=== PATIENT | female | born 1975 | race Caucasian/White ===

== ENCOUNTER 2020-12-17 16:43 | Emergency (ER) | payer OTHER ==
[~2020-12-17 16:43] MED LIST: BROMPHENIR-PSE118 ML PO; COLACE 100MG C100 MG PO; IBUPROFEN600 MG PO; LORTAB 5-325 M1 EACH PO; ZYRTEC10 MG PO
== END 2020-12-17 20:55 | disposition home or self-care (01) ==
LOC: ER1 16:43
DX: S30.0XXA Contusion of lower back and pelvis, initial encounter (principal); Z90.710 Acquired absence of both cervix and uterus; Z79.899 Other long term (current) drug therapy; Z88.8 Allergy status to other drugs, medicaments and biological substances; W01.0XXA Fall on same level from slipping, tripping and stumbling without subsequent striking against object, initial encounter
CPT/HCPCS: 72100; 99283

== ENCOUNTER → 2021-01-21 | Outpatient (CLI) | payer OTHER | LOC: KOH-I 15:53 | DX: M79.661 Pain in right lower leg (principal) | CPT/HCPCS: 93971 ==